=== PATIENT | male | born 1990 | race Two or more races ===

== ENCOUNTER 2018-03-11 17:01 | Observation (INO) ==
[2018-03-11] MEDS ORDERED: LACTATED RINGERS 1,000 ML IV STA (17:17)
[2018-03-11] MEDS ORDERED: ONDANSETRON 4 MG/2 ML VIAL IV STA (17:17)
[2018-03-11] MEDS ORDERED: DIPH/TET/ACEL PERT BOOSTER VACCINE 0.5 ML VIAL IM ONE (17:17)
[2018-03-11] MEDS ORDERED: MORPHINE 4 MG/1 ML VIAL IV STA (17:17)
[2018-03-11 18:26] LABS: Basophils # 0.1 10*3/uL (0.0-0.2); Basophils % 1.1 % (0.0-0.8); Eosinophils # 0.1 10*3/uL (0.0-0.87); Eosinophils % 1.2 % (0.00-10.9); Hematocrit 39.5 VOL% (42.0-52.0); Hemoglobin 13.7 GM/DL (14.0-18.0); Immature Granulocytes % 0.3 %; Immature Granulocytes Absolute 0.02 #; Lymphocytes # 2.1 10*3/uL (1.4-4.0); Lymphocytes % 31.1 % (21.2-54.2); Mean Corpuscular HGB Conc 34.7 GM/DL (32-36); Mean Corpuscular Hemoglobin 29 PG (27-34); Mean Corpuscular Volume 84.2 FL (87-102); Mean Platelet Volume 10.4 FL (9.6-12.0); Monocytes # 0.6 10*3/uL (0.11-0.8); Monocytes % 8.3 % (1.7-12.7); Neutrophils # 3.8 10*3/uL (1.4-7.4); Platelet Count 309 T/CUMM (130-400); Red Blood Count 4.69 MC/CUMM (3.8-5.5); Red Cell Distribution Width 12.6 % (9.3-17.3); White Blood Count 6.6 T/CUMM (4-12)
[2018-03-11 18:56] LABS: Albumin 3.8 G/DL (3.4-5.0); Bilirubin,Total 0.9 MG/DL (0.2-1.0); Calcium 8.1 MG/DL (8.5-10.1); Osmolality,Calculated 279.4 MOS/KG (273-304); Potassium 3.5 MMOL/L (3.5-5.1); Total Protein 7.7 G/DL (6.4-8.3)
[2018-03-11] MEDS ORDERED: SODIUM CHLORIDE 0.9% 1,000 ML IV SCH (21:25)
[2018-03-11] MEDS ORDERED: MORPHINE 4 MG/1 ML VIAL IV PRN (21:25)
[2018-03-11] MEDS ORDERED: ONDANSETRON 4 MG/2 ML VIAL IV PRN (21:25)
[2018-03-11] MEDS ORDERED: ACETAMINOPHEN 325 MG TABLET PO PRN (21:25)
[2018-03-11] MEDS: PIPERACILLIN/TAZOBACTAM 3,375 MG in SODIUM CHLORIDE 0.9% 100 ML IV SCH (22:14)
[2018-03-12] MEDS: PIPERACILLIN/TAZOBACTAM 3,375 MG in SODIUM CHLORIDE 0.9% 100 ML IV SCH (06:07)
[2018-03-12 10:52] VITALS: BP 113/67
== END 2018-03-12 11:17 | disposition home or self-care (01) ==
LOC: N.ED 17:01 → N.EDINP 17:01 → N.4E 21:34
PROVIDERS: ADMIT Surgery; ATTEND Surgery